=== PATIENT | female | born 1975 | race African-American/Black ===

== ENCOUNTER 2019-02-08 08:16 | Outpatient (CLI) | payer BC ==
[2019-02-08] VITALS (10 sets, daily range): BP systolic 133–163; BP diastolic 80–93
[2019-02-08] MEDS ORDERED: CEREFOLIN TAB1 TAB PO (08:25)
[2019-02-08] MEDS ORDERED: ASCORBIC ACID500 MG PO (08:25)
[2019-02-08] MEDS ORDERED: MERIBIN5 MG PO (08:26)
[2019-02-08] MEDS ORDERED: ESTRACE 0.5 MG0.5 MG PO (08:26)
[2019-02-08] MEDS ORDERED: VITAMIN D31000 UNIT PO (08:27)
[2019-02-08] MEDS ORDERED: FISH OIL 1,0001 CA1 PO (08:28)
--- NOTE | 2019-02-08 08:28 | NUR ---
MEDICAL IMAGING NOTIFIED FOR ULTRASOUND
--- NOTE | 2019-02-08 08:33 | NUR ---
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 TRANFERRED TO [facility] FOR FURTHER CONTRACT WRITER EVALUATION. HX OF ONSET LOW ABDOMINAL RIGHT SIDE LOW BACK PAIN ON SATURDAY. SAYS IT FEELS SHARP, "COMES AND GOES. FELT BETTER WITH LAYING DOWN, WORSE WITH WALKING AND GOING TO THE BATHROOM." WNET TO ER LAST NIGHT BECAUSE PAIN WOKE HER UP AND WORSE THAN IT HAD BEEN. SURG HX- PARTIAL HYSTERECTOMY 2013, STILL HAS OVARIES. CARPAL TUNNEL REPAIR RIGHT HAND, . LAST ATE- SATURDAY AT 1800 BUT THREW IT UP. LAST DRANK- 2199 FOLLOWED BY VOMITING. LAST BM SATURDAY, SOMETIMES DAILY, SOMETIME SEVERAL DAYS APART. SEE MEDICATION LIST. MED HX KIDNEY STONES, URI IN JAN 2019 TREATED WITH ANTIBIOTIC. PE: ALERT AND ORIENTED, SALINE LOCK PRESENT RIGHT AC. NO ACUTE DISTRESS NOTED. LUNGS CLEAR, HEART RRR, ENT WNL, EXTREMETIES WNL, TENDERNESS SUPRAPUBIC AREA, NEG CVAT. CURRENT PAIN 6/10 SHARP LOW ABDOMEN. P: DR ONTIVEROS CALLED IN ORDERS BEFORE PT ARRIVAL-NPO, US, PAIN MEDS, IV FLUIDS. RADIOLOGY HAS BEEN NOTIFIED. PT ORIENTED TO ROOM, SIDERAILS UP X 2, CALL LIGHT IN REACH. VISITOR IN ROOM. PT CURRENTLY LOOKING AT CELLPHONE.
--- NOTE | 2019-02-08 08:44 | NUR ---
IV LR 1000 ML PLACED ON ALARIS PUMP AT STARTED AT 125 ML/HR. RECEIVED MORPHINE AND ZOFRAN PRIOR TO TRANSFER TO [facility]. DENIES CURRENT NAUSEA. ELEVATED BPS NOTED, PT DENIES HX OF HTN.
--- NOTE | 2019-02-08 08:54 | NUR ---
DR ONTIVEROS NOTIFIED OF PATIENT ARRIVAL, VS'S, PT COMPLAINTS. ORDERS RECEIVED. SHE WILL BE IN TO SEE PATIENT THIS AM.
[2019-02-08 09:17] LABS: BASOPHILS 0.1 % (0-2); EOSINOPHILS 0.9 % (0-7); HEMATOCRIT 36.5 % (36.0-48.0); HEMOGLOBIN 12.1 g/dL (12-16); IMMATURE GRANULOCYTES 0.4 % (0-5); LYMPHOCYTES 23.4 % (15-50); MCH 29.2 pg (26.0-34.0); MCHC 33.2 g/dL (31.0-37.0); MCV 88.2 fL (80.0-100.0); MEAN PLATELET VOLUME 10.7 fL (7.4-10.4); MONOCYTES 9.6 % (2-11); NEUTROPHILS 65.6 % (40-80); PLATELET COUNT 170 10x3/uL (130-400); RBC 4.14 10x6/uL (4.00-5.40); RDW 12.9 % (11.5-14.5); WBC 7.8 10x3/uL (4.8-10.8)
--- NOTE | 2019-02-08 09:21 | NUR ---
CBC RESULTS OBTAINED. CONTACTED RADIOLOGY TO SEE WHEN US WILL BE DONE. TECH WILL BE HERE EVETTE.
--- NOTE | 2019-02-08 09:28 | NUR ---
US TECH HERE.
--- NOTE | 2019-02-08 10:17 | NUR ---
US TECH COMPLETED EXAM. PT WAS UP TO VOID DURING EXAM WITH ASSISTANCE BY TECH. SAYS PAIN IS INTERMITTENT IN RIGHT LOW BACK /. MORPHINE 2MG GIVEN SLOW IVP. SIDERAILS UP X2, CALL LIGHT IN REACH. VISITOR X 1 IN ROOM.
--- NOTE | 2019-02-08 10:33 | NUR ---
AROUSED FROM SLEEP. DR ONTIVEROS IN ROOM TALKING TO PATIENT.
--- NOTE | 2019-02-08 10:46 | NUR ---
SITTING UP IN BED TALKING TO VISITOR. DR ONTIVEROS OUT OF ROOM. DENIES FEELING ANY PAIN. 0. INFORMED PT WAITING ON US REPORT AND WILL HAVE ANOTHER CBC DRAWN AT 1300. REMAINS NPO. TO CALL IF ANYTHING IS NEEDED.
--- NOTE | 2019-02-08 12:08 | NUR ---
LAYING BED TALKING TO VISITOR. DENIES PAIN. NO REQUESTS. TO CALL IF ANYTHING IS NEEDED. US RESULTS PENDING.
--- NOTE | 2019-02-08 12:36 | NUR ---
REPORT OF US CALLED TO DR ONTIVEROS. NO NEW ORDERS AT PRESENT. WILL CALL MD RESULTS OF CBC WHEN COMPLETED AFTER 1300.
[2019-02-08 12:59] LABS: BASOPHILS 0.1 % (0-2); HEMATOCRIT 35.6 % (36.0-48.0); HEMOGLOBIN 11.6 g/dL (12-16); IMMATURE GRANULOCYTES 0.2 % (0-5); LYMPHOCYTES 22.4 % (15-50); MCH 28.8 pg (26.0-34.0); MCHC 32.6 g/dL (31.0-37.0); MCV 88.3 fL (80.0-100.0); MEAN PLATELET VOLUME 10.7 fL (7.4-10.4); MONOCYTES 10.4 % (2-11); NEUTROPHILS 65.9 % (40-80); PLATELET COUNT 169 10x3/uL (130-400); RBC 4.03 10x6/uL (4.00-5.40); RDW 12.9 % (11.5-14.5); WBC 8.3 10x3/uL (4.8-10.8)
--- NOTE | 2019-02-08 13:24 | NUR ---
UP TO BATHROOM. VOIDED 200 ML CLEAR URINE. DENIES PAIN. INSTRUCTED TO LET RN KNOW IF ANY PAIN. INFORMED OF PLAN TO REPEAT CBC AT 1700. ALSO DISCUSSED RESULTS OF US REPORT WITH PT PER REQUEST OF DR ONTIVEROS TO LET PT KNOW CYST IS SMALLER THAN ORIGDONYALLY THOUGHT AND THAT CURRENTLY NO INDICATION FOR SURGERY. VERBALIZED UNDERSTANDING. SIDE RAILS UP X2, CALL LIGHT IN REACH. REMAINS NPO,
--- NOTE | 2019-02-08 14:37 | NUR ---
LAYING IN BED TALKING TO VISITOR. DENIES PAIN AT THIS TIME. STARTING TO FEEL HUNGRY. STILL NPO STATUS. NO REQUESTS. CALL IF ANYTHING IS NEEDED. CALL LIGHT IN REACH.
--- NOTE | 2019-02-08 15:37 | NUR ---
LAYING IN BED WATCHING TV. DENIES PAIN OR NEEDING ANYTHING. TO CALL IF ANYTHING IS NEEDED. NEXT CBC SCHEDULED FOR 1700. VISITOR X 1 IN ROOM.
[2019-02-08 17:00] LABS: BASOPHILS 0.1 % (0-2); EOSINOPHILS 0.9 % (0-7); HEMOGLOBIN 12.1 g/dL (12-16); IMMATURE GRANULOCYTES 0.2 % (0-5); LYMPHOCYTES 25.8 % (15-50); MCH 29.2 pg (26.0-34.0); MCHC 32.7 g/dL (31.0-37.0); MCV 89.2 fL (80.0-100.0); MEAN PLATELET VOLUME 10.8 fL (7.4-10.4); PLATELET COUNT 176 10x3/uL (130-400); RBC 4.15 10x6/uL (4.00-5.40); WBC 8.2 10x3/uL (4.8-10.8)
--- NOTE | 2019-02-08 17:10 | NUR ---
LAYING IN BED WATCHING TV. IV FLUIDS NEARLY COMPLETE. DENIES NAUSEA OR PAIN. READY TO GO HOME. WILL NEED NOTE FOR WORK. DR ONTIVEROS NOTIFIED OF CBC, VS AND PT WITHOUT C/O NAUSEA, PAIN AND READY TO GO HOME. NEW ORDERS RECEIVED- MAY EAT, DC HOME WITH PRECAUTIONS, F/U IN TWO WKS, NOTE TO BE OFF WORK FOR TWO WEEKS. PT NOTIFIED OF PLAN.
--- NOTE | 2019-02-08 17:23 | NUR ---
PATIENT DESIRED TO KNOW WHAT ALTERNATIVE MEDICATION TO ESTRADIOL THAT DR ONTIVEROS HAD DISCUSSED WITH HER EARLIER TODAY. CONTACTED DR ONTIVEROS WHO SAID SHE TALKED TO PT ABOUT PAROXETINE (PAXIL).
[2019-02-08] MEDS ORDERED: IBUPROFEN600 MG PO (17:50)
[2019-02-08] MEDS ORDERED: ZOFRAN ODT4 MG/UDTAB PO (17:50)
--- NOTE | 2019-02-08 17:55 | NUR ---
RX FOR ZOFRAN 4 MG ODT Q 8 HRS CALLED IN TO [facility], [facility]. TALKED TO RAYMON, PHARMACIST. ORDER WAS FROM DR ONTIVEROS. 20 TABS.
--- NOTE | 2019-02-08 18:10 | NUR ---
IV DC'D WITH TIP INTACT. VERBAL AND WRITTEN DC INSTRUCTIONS GIVEN TO INCLUDE OVARIAN CYST DC INSTRUCTIONS, DANGER SIGNS, S&S INFECTION, PAIN RELIEF MEASURES AND MEDICATION ADMINISTRATION. TO CALL CLINIC TOMORROW TO SCHEDULE F/U APPOINTMENT WITH DR ONTIVEROS. VERBALIZED UNDERSTANDING. PATIENT ASKED IF SHE CAN TAKE ALEVE INSTEAD OF MOTRIN SINCE THAT IS WHAT SHE HAS AT HOME. EXPLAINED TO PATIENT THAT BOTH ARE ANTI-INFLAMMATORY PAIN RELIEF MEDICATIONS AND THAT DR ONTIVEROS HAD SAID THAT AN ANTI-INFLAMMATORY MEDICATION WILL HELP. VERBALIZED UNDERSTANDING.
--- NOTE | 2019-02-08 18:25 | NUR ---
DC'D FROM OUTPATIENT STATUS VIA WHEELCHAIR. PT MOTHER DRIVING. HAS DC INSTRUCTIONS. ALL BELONGINGS REMOVED FROM ROOM.
== END 2019-02-08 18:25 | disposition home or self-care (01) ==
LOC: D.LDO 08:16
PROVIDERS: ATTEND Student in an Organized Health Care Education/Training Program
DX: O34.80 Maternal care for other abnormalities of pelvic organs, unspecified trimester (principal); N83.209 Unspecified ovarian cyst, unspecified side; Z3A.00 Weeks of gestation of pregnancy not specified; R11.2 Nausea with vomiting, unspecified; R10.31 Right lower quadrant pain